=== PATIENT | male | born 1985 | race Two or more races ===

== ENCOUNTER 2022-11-29 14:49 | Emergency (ER) | payer OTHER ==
[~2022-11-29] VITALS: Ht 165.1 cm; Wt 90.0 kg
[2022-11-29] MEDS ORDERED: ONDANSETRON HCL 4 MG/2 ML VIAL IVP ONE (15:15)
[2022-11-29] MEDS ORDERED: SODIUM CHLORIDE 0.9% 1,000 ML IV ONE (15:15)
[2022-11-29] MEDS ORDERED: ACETAMINOPHEN 500 MG TABLET PO ONE (15:15)
[2022-11-29] MEDS ORDERED: KETOROLAC TROMETHAMINE 30 MG/ML VIAL IVP ONE (15:15)
[2022-11-29] MEDS ORDERED: MAG HYDROX/AL HYDROX/SIMETH 30 ML SUSP UDCUP PO ONE (15:15)
[2022-11-29] MEDS ORDERED: FAMOTIDINE 10 MG/ML 2 ML VIAL IVP ONE (15:15)
[2022-11-29] MEDS ORDERED: IOHEXOL 350 MG/ML 100 ML VIAL ONE (15:27)
[2022-11-29] MEDS ORDERED: SODIUM CHLORIDE 0.9% 100 ML ONE (15:27)
[2022-11-29 15:35] LABS: BASOPHILS % (AUTO) 0.3 % (0.0-2.0); EOSINOPHILS % (AUTO) 0.1 % (1.0-6.0); HEMATOCRIT 40.1 % (41-53); HEMOGLOBIN 13.7 g/dL (13.5-17.5); LYMPHOCYTES # (AUTO) 2.6 K/uL (1.0-4.8); LYMPHOCYTES % (AUTO) 18.4 % (22.0-44.0); MEAN CORPUSCULAR HEMOGLOBIN 30.4 pg (26.0-34.0); MEAN CORPUSCULAR HGB CONC 34.2 G/dL (31.0-37.0); MEAN CORPUSCULAR VOLUME 89 fL (80-100); MONOCYTES # (AUTO) 1.4 K/uL (0.1-1.0); NEUTROPHILS % (AUTO) 71.2 % (40.0-70.0); PLATELET COUNT (AUTO) 235 K/uL (150-450); RED BLOOD CELL COUNT(AUTO) 4.51 MIL/uL (4.50-5.90); RED CELL DISTRIBUTION WIDTH 12.8 % (11.5-14.5)
[2022-11-29 15:42] LABS: ANION GAP 8 mmol/L (8-16); CALCIUM, TOTAL 9.1 mg/dL (8.8-10.5); CARBON DIOXIDE 26 mmol/L (22-29); CHLORIDE 100 mmol/L (98-107); CREATININE 0.87 mg/dL (0.60-1.30); GLOMERULAR FILTR. RATE CALC > 60 mL/min (>60); GLUCOSE,RANDOM 129 mg/dL (70-110); SODIUM SERUM 134 mmol/L (136-145); UREA NITROGEN, BLOOD 23 mg/dL (7-18)
[2022-11-29 15:51] LABS: ALANINE AMINOTRANSFERASE 140 U/L (12-78); ALBUMIN 4.4 g/dL (3.4-5.0); ALKALINE PHOSPHATASE 71 U/L (46-116); ASPARTATE AMINOTRANSFERASE 277 U/L (15-37); BILIRUBIN,TOTAL 0.6 mg/dL (0.1-1.0); LIPASE 216 U/L (73-393)
[2022-11-29] MEDS ORDERED: MetroNIDAZOLE 250 MG TABLET PO ONE (17:15)
[2022-11-29 17:31] VITALS: BP 132/66
== END 2022-11-29 17:35 | disposition home or self-care (01) ==
LOC: EMS 14:53
DX: R11.2 Nausea with vomiting, unspecified (principal); R10.13 Epigastric pain
CPT/HCPCS: 99285; 74177; 96374; 76705; 96375; 96361; 80053; 83690; 84484; 85025; 36415; 93005; J3490; J1885; J2405; Q9967; J7030; J7050